=== PATIENT | female | born 2000 | race Caucasian/White ===

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

== ENCOUNTER 2020-07-16 18:40 | Emergency (ER) | payer MEDICAID ==
--- NOTE | 2020-07-16 19:38 | EDM.PDOC ---
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 started having some cramping and little spotting like her 1st . 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 Lower Abdominal Pain Score (Numeric/FACES): 5 - Related Data Allergies Allergy/AdvReac Type Severity Reaction Status Date / Time ibuprofen Allergy Mild Rash Verified 07/16/20 18:54 Home Meds: Home Meds Escitalopram Oxalate [Lexapro] 20 mg PO DAILY 07/16/20 [History] Past Medical History HEENT History: Reports: None Cardiovascular History: Reports: None Respiratory History: Reports: None Gastrointestinal History: Reports: None Genitourinary History: Reports: Pyelonephritis, UTI, Recurrent, Other (See Below) Other Genitourinary History: 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 10/09/19 23 weeks gestation Musculoskeletal History: Reports: None Neurological History: Reports: None Psychiatric History: Reports: Depression Endocrine/Metabolic History: Reports: None Hematologic History: Reports: Anemia Immunologic History: Reports: None Oncologic (Cancer) History: Reports: None Dermatologic History: Reports: None - Infectious Disease History Infectious Disease History: Reports: None - Past Surgical History Head Surgeries/Procedures: Reports: None Musculoskeletal Surgical History: Reports: Arthroscopic Knee Social & Family History - Family History Family Medical History: Noncontributory - Tobacco Use Tobacco Use Status *Q: Unknown Ever Used Tobacco Second Hand Smoke Exposure: No - Caffeine Use Caffeine Use: Reports: Coffee - Recreational Drug Use Recreational Drug Use: No ED ROS GENERAL - Review of Systems Review Of Systems: Comprehensive ROS is negative, except as noted in HPI. ED EXAM - Physical Exam Exam: See Below Exam Limited By: No Limitations General Appearance: Alert, WD/WN, No Apparent Distress Ears: Hearing Grossly Normal Throat/Mouth: Normal Voice, No Airway Compromise Head: Atraumatic Neck: Non-Tender, Full Range of Motion Respiratory/Chest: No Respiratory Distress Cardiovascular: Regular Rate, Rhythm GI/Abdominal Exam: Soft, Non-Tender Rectal Exam: Deferred (Female) Exam: Other (deferred) Neurological: Alert, Oriented, Normal Cognition, Normal Gait, No Motor/Sensory Deficits Psychiatric: Normal Affect, Normal Mood Skin Exam: Warm, Dry, Normal Color Lymphatic: No Adenopathy Course - Vital Signs Text/Narrative:: discussed with pt. Last Recorded V/S: Last Vital Signs Temp 36.9 C 07/16/20 18:58 Pulse 96 07/16/20 18:58 Resp 18 07/16/20 18:58 BP 131/74 07/16/20 18:58 Pulse Ox 99 07/16/20 18:58 - Orders/Labs/Meds Orders: Active Orders 24 hr Category Date Time Status UA W/RAMBO RFLX IF INDICATED [URIN] Stat Lab 07/16/20 19:04 Received Labs: Laboratory Tests 07/16/20 07/16/20 Range/Units 19:04 19:04 Urine HCG, Qual Positive Urine Opiates Screen Negative (NEGATIVE) Ur Oxycodone Screen Negative (NEGATIVE) Urine Methadone Screen Negative (NEGATIVE) Ur Barbiturates Screen Negative (NEGATIVE) U Tricyclic Antidepress Negative (NEGATIVE) Ur Phencyclidine Scrn Negative (NEGATIVE) Ur Amphetamine Screen Negative (NEGATIVE) U Methamphetamines Scrn Negative (NEGATIVE) Urine MDMA Screen Negative (NEGATIVE) U Benzodiazepines Scrn Negative (NEGATIVE) Urine Cocaine Screen Negative (NEGATIVE) U Marijuana (THC) Screen Negative (NEGATIVE) Departure - Departure Time of Disposition: 19:36 Disposition: Home, Self-Care 01 Condition: Good Clinical Impression: Qualifiers: Weeks of gestation: unspecified Qualified Code(s): Z34.90 - Encounter for supervision of normal , unspecified, unspecified trimester - Discharge Information Additional Instructions: 1) rest 2) see OB doctor 3) recheck if there is any change or concerns. Sepsis Event Note (ED) - Evaluation Sepsis Screening Result: No Definite Risk - Focused Exam Vital Signs: Vital Signs Temp Pulse Resp BP Pulse Ox 07/16/20 18:58 36.9 C 96 18 131/74 99 - My Orders Last 24 Hours: My Active Orders 07/16/20 19:04 UA W/RAMBO RFLX IF INDICATED [URIN] Stat - Assessment/Plan Last 24 Hours: My Active Orders 07/16/20 19:04 UA W/RAMBO RFLX IF INDICATED [URIN] Stat
== END 2020-07-16 19:40 | disposition home or self-care (01) ==
LOC: DL.ED 18:40
DX: Z34.90 Encounter for supervision of normal pregnancy, unspecified, unspecified trimester (principal)
CPT/HCPCS: 80305-QW; 81001; 81025; 87086; 87088; 87186; 99283; 99284

== ENCOUNTER 2022-10-24 00:10 | Observation (INO) | payer MEDICAID ==
[~2022-10-24 00:10] MED LIST: Acetaminophen 325 MG Tab PO PRN; Carboprost Tromethamine 250 MCG/1 ML Amp IM PRN; Lactated Ringers 1,000 ML IV ONE; Lidocaine 1% 30 ML SDV INJECT PRN; Methylergonovine 0.2 MG/1 ML Amp IM PRN; Misoprostol 400 MCG (4 X 100 MCG TAB) RECTAL PRN; Nalbuphine 20 MG/1 ML Amp IM PRN; Ondansetron 4 MG/2 ML SDV IVPUSH PRN; Sodium Chloride 0.9% 10 ML Syringe FLUSH PRN; Tranexamic Acid 1,000 MG in Sodium Chloride 0.9% 100 ML IV PRN; fentaNYL 100 MCG/2 ML SDV IVPUSH PRN
[2022-10-24] MEDS: Misoprostol 25 MCG (1/4 of 100 MCG) Tab VAG PRN ×2 (01:31→05:40)
[2022-10-24] MEDS ORDERED: EPINEPHrine 1 MG/ML SDV ONE ×2 (09:25→09:37)
[2022-10-24] MEDS ORDERED: Sodium Bicarbonate 4.2% 2.5 MEQ/5 ML SDV ONE ×2 (09:25→09:37)
[2022-10-24] MEDS ORDERED: Dexmedetomidine 200 MCG/2 ML SDV ONE (09:25)
[2022-10-24] MEDS ORDERED: Sodium Chloride 0.9% 20 ML SDV ONE (09:37)
[2022-10-24] MEDS ORDERED: Morphine PF 10 MG/10 ML SDV IT ONE (09:37)
[2022-10-24] MEDS ORDERED: Dexmedetomidine 200 MCG/2 ML SDV IV ONE (09:37)
[2022-10-24] MEDS: Lactated Ringers 1,000 ML IV SCH ×2 (09:39→11:13)
[2022-10-24] MEDS: Oxytocin/Normal Saline 30 UNIT/500 ML BAG IV SCH ×2 (11:26→15:14)
[2022-10-24] MEDS ORDERED: Ibuprofen 800 MG Tab PO PRN (13:09)
[2022-10-24] MEDS ORDERED: Benzocaine/Menthol 20%-0.5% Spray 78 GM Cannister TOP PRN (13:09)
[2022-10-24] MEDS ORDERED: Docusate Sodium 100 MG Cap PO PRN (13:09)
[2022-10-24] MEDS ORDERED: Simethicone 80 MG Tab.Chew PO PRN (13:09)
[2022-10-24] MEDS ORDERED: Oxytocin 10 Units/1 ML SDV IM PRN (13:09)
[2022-10-24] MEDS ORDERED: Acetaminophen 325 MG Tab PO PRN (13:09)
[2022-10-24] MEDS ORDERED: Witch Hazel Medicated Pads 100/Jar TOP PRN (15:00)
[2022-10-24] MEDS: FLUoxetine 10 MG Cap PO SCH (17:32)
[2022-10-25] MEDS ORDERED: Prenatal Multivitamin with Calcium/Folic Acid/Iron Tab PO SCH (09:00)
[2022-10-25] MEDS: FLUoxetine 10 MG Cap PO SCH (09:00)
== END 2022-10-25 15:05 | disposition home or self-care (01) ==
LOC: DL.OB 00:10
PROVIDERS: ADMIT Family Medicine; ATTEND Family Medicine
DX: O99.013 Anemia complicating pregnancy, third trimester (principal); O99.343 Other mental disorders complicating pregnancy, third trimester; F32.A Depression, unspecified; F41.9 Anxiety disorder, unspecified; O99.283 Endocrine, nutritional and metabolic diseases complicating pregnancy, third trimester; E66.9 Obesity, unspecified; O80 Encounter for full-term uncomplicated delivery; O70.9 Perineal laceration during delivery, unspecified; Z87.59 Personal history of other complications of pregnancy, childbirth and the puerperium; Z79.899 Other long term (current) drug therapy; Z88.6 Allergy status to analgesic agent; Z98.890 Other specified postprocedural states; Z68.38 Body mass index [BMI] 38.0-38.9, adult; Z87.891 Personal history of nicotine dependence; Z20.822 Contact with and (suspected) exposure to COVID-19
CPT/HCPCS: 36415; 51701; 59409; 85027; 86592; A9270-GY; J0171; J2270; J2405; J2590; J3490; J7120; U0002